=== PATIENT | female | born 1990 | race Two or more races ===

== ENCOUNTER 2021-07-14 23:47 | Emergency (ER) | payer BC, OTHER ==
[~2021-07-14] VITALS: Ht 162.6 cm; Wt 79.5 kg
[2021-07-14 23:48] VITALS: BP 107/71
[2021-07-15] MEDS ORDERED: ACETAMINOPHEN 500 MG TABLET PO ONE (01:00)
== END 2021-07-15 02:04 | disposition home or self-care (01) ==
LOC: EMS 23:49
DX: S60.012A Contusion of left thumb without damage to nail, initial encounter (principal); W20.8XXA Other cause of strike by thrown, projected or falling object, initial encounter; Y93.89 Activity, other specified; Y92.89 Other specified places as the place of occurrence of the external cause; Y99.0 Civilian activity done for income or pay
CPT/HCPCS: 99283